=== PATIENT | male | born 1945 | race Caucasian/White ===

== ENCOUNTER → 2019-01-23 | Outpatient (CLI) | payer MEDICARE, OTHER ==
[~2019-01-23] VITALS: Ht 182.9 cm; Wt 90.9 kg
[~2019-01-23] MED LIST: CAND1TAB13 PO; SITA1TAB PO
[2019-01-23 12:10] LABS: BASOPHILS # (AUTO) 0.04 x10^3/uL (0-0.1); BASOPHILS % (AUTO) 1 % (0-1); EOSINOPHILS # (AUTO) 0.08 x10^3/uL (0-0.4); EOSINOPHILS % (AUTO) 1 % (1-7); LYMPHOCYTES # (AUTO) 3.79 x10^3/uL (1-3.4); LYMPHOCYTES % (AUTO) 45 % (22-44); MD NO; MEAN CORPUSCULAR HEMOGLOBIN 27.9 pg (27.5-34.5); MEAN CORPUSCULAR HGB CONC 32.6 g/dL (33.2-36.2); MEAN CORPUSCULAR VOLUME 85.5 fL (81-97); MEAN PLATELET VOLUME 7.8 fL (7.4-10.4); MONOCYTES # (AUTO) 0.46 x10^3/uL (0.2-0.8); MONOCYTES % (AUTO) 6 % (2-9); NEUTROPHILS # (AUTO) 4.01 x10^3/uL (1.8-6.8); NEUTROPHILS % (AUTO) 48 % (42-75); PLATELET COUNT 259 x10^3/uL (130-400); RED BLOOD COUNT 5.23 x10^6/uL (4.38-5.82); RED CELL DISTRIBUTION WIDTH 13.7 % (9.4-14.8)
[2019-01-23 12:16] LABS: INTERNATIONAL NORMALIZED RATIO 0.96 (0.93-1.1); PROTHROMBIN TIME 10.1 Seconds (9.6-11.5)
[2019-01-23 12:20] LABS: ALBUMIN 4.1 g/dL (3.4-5.0); ANION GAP 7 mmol/L (5-15); CALCIUM 9.5 mg/dL (8.5-10.1); CHLORIDE 106 mmol/L (98-107); CREATININE 1.31 mg/dL (0.7-1.3)
[2019-01-23 12:30] LABS: ALANINE AMINOTRANSFERASE 45 U/L (12-78); ALKALINE PHOSPHATASE 57 U/L (45-117); BILIRUBIN,TOTAL 0.5 mg/dL (0.2-1.0); TOTAL PROTEIN 7.7 g/dL (6.4-8.2)
[2019-01-23 12:36] LABS: HEMOGLOBIN A1C 7.5 % (4.2-6.3)
== END | disposition home or self-care (01) ==
LOC: STAR 11:02
PROVIDERS: ATTEND Orthopaedic Surgery
DX: Z01.818 Encounter for other preprocedural examination (principal); M18.11 Unilateral primary osteoarthritis of first carpometacarpal joint, right hand; Z96.641 Presence of right artificial hip joint
CPT/HCPCS: 36415; 80053; 83036; 85025; 85610; 85730; 87081; 93005

== ENCOUNTER 2019-01-31 07:07 | Inpatient (IN) | payer MEDICARE, OTHER ==
[~2019-01-31] VITALS: Ht 182.9 cm; Wt 92.6 kg
[~2019-01-31 07:07] MED LIST changes: +EPINEPHRINE 1 MG/ML, 1ML ONE; +KETOROLAC 60 MG/2 ML ONE; +ROPIvacaine/PF 0.5%, 30 ML ONE; +SODIUM CHLORIDE 0.9% 50 ML ONE; +TRANEXAMIC ACID 100 MG/ML, 10ML ONE; +VANCOMYCIN 1,000 MG ONE
[2019-01-31 07:18] VITALS: BP 149/91
[2019-01-31] MEDS ORDERED: LACTATED RINGERS 1,000 ML IV SCH (07:24)
[2019-01-31] MEDS ORDERED: ACETAMINOPHEN 500 MG TABLET PO ONE (07:30)
[2019-01-31] MEDS ORDERED: GABAPENTIN 300 MG CAPSULE PO ONE (07:30)
[2019-01-31] MEDS ORDERED: ONDANSETRON 4 MG TABLET PO PRN (08:00)
[2019-01-31] MEDS ORDERED: SCOPOLAMINE PATCH, 1.5MG PATCH.TD72 TD ONE (08:00)
[2019-01-31] MEDS ORDERED: METOCLOPRAMIDE 5 MG/ML, 2ML IV PRN (08:30)
[2019-01-31] MEDS ORDERED: KETOROLAC 30 MG/1 ML IV PRN (08:30)
[2019-01-31] MEDS ORDERED: LABETALOL 5MG/ML, 20ML IV PRN (08:30)
[2019-01-31] MEDS ORDERED: MIDAZOLAM 1 MG/ML, 2ML IV PRN (08:30)
[2019-01-31] MEDS ORDERED: HYDROcodone/APAP 7.5-325MG/15ML UDC PO PRN (08:30)
[2019-01-31] MEDS ORDERED: OXYcodone 5 MG/5 ML ORAL.SOL UDC PO PRN (08:30)
[2019-01-31] MEDS ORDERED: ONDANSETRON 2MG/ML, 2ML IVPush PRN (08:30)
[2019-01-31] MEDS ORDERED: MEPERIDINE/PF 25MG/0.5ML IVPush PRN (08:30)
[2019-01-31] MEDS ORDERED: HYDROmorphone 1 MG/ML, 1ML INJ IV PRN (08:30)
[2019-01-31] MEDS ORDERED: FENTANYL PF 100 MCG/2ML IV PRN (08:30)
[2019-01-31] MEDS ORDERED: KETAMINE 10 MG/ML, 20ML ONE (08:36)
[2019-01-31] MEDS ORDERED: MAGNESIUM SULFATE 1 GM/2 ML ONE (08:37)
[2019-01-31] MEDS ORDERED: DEXAMETHASONE 4 MG/ML, 1ML ONE (08:59)
[2019-01-31] MEDS ORDERED: GLYCOPYRROLATE 0.2MG/1ML, 5ML ONE (08:59)
[2019-01-31] MEDS ORDERED: CEFAZOLIN 1,000 MG ONE (08:59)
[2019-01-31] MEDS ORDERED: PROPOFOL 10 MG/ML, 20ML ONE (08:59)
[2019-01-31] MEDS ORDERED: ROCURONIUM 10 MG/ML,10ML ONE (08:59)
[2019-01-31] MEDS ORDERED: LIDOCAINE-MPF 2% ,5ML ONE (08:59)
[2019-01-31] MEDS ORDERED: DOCUSATE 100 MG CAPSULE PO SCH (09:00)
[2019-01-31] MEDS ORDERED: HYDROCHLOROTHIAZIDE 12.5 MG CAPSULE PO SCH (09:00)
[2019-01-31] MEDS ORDERED: MAGNESIUM HYDROXIDE 8%, 30ML UDC PO PRN (09:00)
[2019-01-31] MEDS ORDERED: LOSARTAN 50MG TABLET PO SCH (09:00)
[2019-01-31] MEDS ORDERED: BISACODYL 10 MG SUPP PR PRN (09:00)
[2019-01-31] MEDS ORDERED: [UNRECOGNIZED DRUG - OTHER] PO SCH (09:00)
[2019-01-31] MEDS ORDERED: TEMPLATE NON-FORMULARY MED. (Sitagliptin Phos/Metformin Hcl** (Janumet 50-500 Mg Tablet**) PO SCH (09:00)
[2019-01-31] MEDS ORDERED: SENNA/DOCUSATE TABLET PO PRN (09:00)
[2019-01-31] MEDS ORDERED: FENTANYL PF 100 MCG/2ML ONE (10:38)
[2019-01-31] MEDS ORDERED: OXYcodone 5 MG/5 ML ORAL.SOL UDC ONE (10:39)
[2019-01-31] MEDS ORDERED: INSULIN LISPRO 100 UNITS/ML, PEN SQ-INSULIN SCH (11:00)
[2019-01-31] MEDS ORDERED: CEFAZOLIN PMX 2GM/50ML 50 ML IVPB SCH (12:00)
[2019-01-31] MEDS ORDERED: ONDANSETRON 2MG/ML, 2ML IV PRN (12:00)
[2019-01-31] MEDS ORDERED: NS + 20MEQ KCL 1,000 ML IV SCH (12:00)
[2019-01-31] MEDS: metFORMIN 500 MG TABLET PO SCH ×2 (12:00→12:55)
[2019-01-31] MEDS ORDERED: DIPHENHYDRAMINE 25 MG CAPSULE PO PRN (12:00)
[2019-01-31] MEDS ORDERED: OXYcodone IR 5MG TABLET PO PRN (12:00)
[2019-01-31] MEDS ORDERED: LINAGLIPTIN 5 MG TAB PO SCH (12:10)
[2019-01-31 13:35] VITALS: BP 136/96
[2019-01-31] MEDS ORDERED: HYDROcodone/APAP 5/325 TABLET PO PRN (14:00)
[2019-01-31] MEDS ORDERED: ACETAMINOPHEN 325 MG TABLET PO PRN (14:00)
[2019-01-31] MEDS ORDERED: TRAM50TA2 PO (17:02)
[2019-01-31] MEDS ORDERED: OXYC5CAP2 PO (17:02)
[2019-01-31] MEDS ORDERED: MELO7.5T5 PO (17:03)
[2019-01-31] MEDS ORDERED: ASPIRIN 81 MG TABLET EC PO SCH (18:00)
[2019-01-31] MEDS ORDERED: ZOLPIDEM 5MG TABLET PO PRN (21:00)
[2019-02-01] MEDS ORDERED: DEXAMETHASONE 4 MG/ML, 1ML IVPush SCH (06:00)
== END 2019-01-31 18:36 | disposition home or self-care (01) | DRG 470 ==
LOC: ORIP 07:07 → 4NOR 11:25
PROVIDERS: ADMIT Orthopaedic Surgery; ATTEND Orthopaedic Surgery
PROC: 0SR906A Replacement of Right Hip Joint with Oxidized Zirconium on Polyethylene Synthetic Substitute, Uncemented, Open Approach (ICD-10-PCS; principal; 2019-01-31 09:30)
DX: M16.11 Unilateral primary osteoarthritis, right hip (principal); E11.9 Type 2 diabetes mellitus without complications; I10 Essential (primary) hypertension; Z88.0 Allergy status to penicillin; Z88.8 Allergy status to other drugs, medicaments and biological substances
CPT/HCPCS: 72170; 76000; 82962; C1713; G0378; J0171; J0690; J1100; J1885; J2405; J2704; J2795; J3010; J3370; J3475; C1776; J7120